=== PATIENT | female | born 2000 | race Two or more races ===

== ENCOUNTER 2023-09-19 09:21 | Emergency (ER) | payer OTHER, SELFPAY ==
--- NOTE | ~2023-09-19 | XR_ITS ---
EXAMINATION: XR CHEST CLINICAL INFORMATION: Cough. COMPARISON: None available. TECHNIQUE: Frontal view of the chest was obtained. FINDINGS: No significant abnormality is noted involving the heart, lungs, mediastinum, bony thorax or soft tissues. XR/XR chest 1V IMPRESSION: Unremarkable chest examination.
[2023-09-19 10:09] VITALS: BP 118/73; PULSE 105; RESP 18; TEMP 37.2; O2SAT 100; BMI 24.5
[2023-09-19] MEDS: Ondansetron ODT 4 MG TAB.RAPDIS TRANSLINGU (10:21)
[2023-09-19 10:31] LABS: MANUAL DIFF FLAG NO
[2023-09-19 10:33] LABS: Basophils Percent Auto 0.4 % (0-2); Eosinophils Absolute Auto 0.1 X10*3/uL (0.0-0.4); Eosinophils Percent Auto 1.1 % (0-4); Hematocrit 46.4 % (37.0-47.0); Imm Gran Abs Auto 0.01 X10*3/uL (0.00-0.03); Imm Gran Pct Auto 0.2 % (0.0-0.4); Lymphocytes Absolute Auto 1.8 X10*3/uL (1.2-4.9); Mean Corpuscular HGB Conc 32.3 g/dl (31.0-35.0); Mean Corpuscular Hemoglobin 28.4 pg (27.0-33.0); Mean Corpuscular Volume 87.9 fL (80.0-98.0); Mean Platelet Volume 10.8 fL (9.4-12.3); Monocytes Absolute Auto 0.4 X10*3/uL (0.1-1.2); Monocytes Percent Auto 6.6 % (2-11); Neutrophils Absolute Auto 3.2 x10*3/uL (2.0-8.3); Neutrophils Percent Auto 58.7 % (45-73); Platelet Count 240 X10*3/uL (160-400); Red Blood Count 5.28 X10*6/uL (4.20-5.50); Red Cell Distribution Width 12.8 % (11.0-16.0); White Blood Count 5.5 X10*3/uL (4.8-10.8)
[2023-09-19 10:34] LABS: Appearance Urine Cloudy; Color Urine Dark Yellow; Glucose Urine UA Negative (Negative); Leukocyte Esterase Urine Trace (Negative); Nitrite Urine Negative (Negative); Specific Gravity - Urine >= 1.030 (1.005-1.025); UMIC TRIGGER UACC YES; Urine Blood Negative (Negative); Urine Ketones 40 mg/dL (Negative); Urine Protein Trace mg/dL (Neg-Trace)
[2023-09-19 10:46] LABS: Bacteria Urine 4+ (None Seen); RBC Urine 0-2 /HPF (0-2); Squamous Epithelial Cell Urine >20 /HPF (0-2); WBC Urine 0-5 /HPF (0-5)
[2023-09-19 10:50] LABS: Anion Gap 15 (12-20); Blood Urea Nitrogen 6 mg/dL (9-16); Calcium 9.8 mg/dL (8.4-10.2); Carbon Dioxide 28 mmol/L (22-29); Chloride 101 mmol/L (96-108); Estimated Glomerular Filt Rate > 60; Glucose Random 99 mg/dL (60-115); Potassium 3.5 mmol/L (3.3-5.1); Sodium 140 mmol/L (135-145)
[2023-09-19 11:09] LABS: Influenza A PCR NEGATIVE (Negative); Influenza B PCR POSITIVE (Negative); Resp Syncy Virus RNA Qual PCR NEGATIVE (Negative); SARS COV2 PCR INHOUSE NEGATIVE (Negative)
[2023-09-19 11:10] LABS: HCG Quantitative < 2 mIU/mL
--- NOTE | 2023-09-19 11:42 | ED_ITS ---
HPI - General Adult General Chief complaint: General Medical Stated complaint: Vomiting Time Seen by Provider: 09/19/23 11:34 Source: patient Mode of arrival: ambulatory Limitations: no limitations History of Present Illness HPI narrative: 23 year old female with no significant past medical history presents to the ED today for evaluation of productive cough and subjective fever x2 days. No documented temperature at home. Cough is productive of yellow/green sputum. States that she was at work this morning when she became nauseous. Endorses 1 episode of vomiting prior to arrival in the ED. Reports sick contacts at work. Has not been taking any medication for this at home. denies change of . Denies chills, sweats, sore throat, shortness of breath, chest pain, wheezing, rashes, leg swelling or pain. Related Data Previous Rx's Medication Instructions Recorded cefuroxime axetil 250 mg tablet 250 mg PO BID 7 days #14 tabs 09/19/23 ondansetron 4 mg disintegrating 4 mg PO DAILY PRN nausea and 09/19/23 tablet vomiting 5 days #7 tabs oseltamivir 75 mg capsule (Tamiflu) 75 mg PO BID 5 days #10 caps 09/19/23 Allergies Allergy/AdvReac Type Severity Reaction Status Date / Time No Known Allergies Allergy Verified 09/19/23 10:20 Review of Systems 2 Review of Systems: Constitutional: +fever, No chills, fatigue, night sweats, weight changes ENT/Mouth: No ear pain, hearing loss, nasal congestion, sinus pain, rhinorrhea, sore throat Eyes: No eye pain, swelling, redness, vision changes, discharge Cardio: No chest pain, palpitations, KUNZ, orthopnea, peripheral edema Pulm: No SOB, +cough, +sputum, No wheezing, dyspnea, hemoptysis GI: +nausea, +vomiting, No hematemesis, abdominal pain, diarrhea, constipation, hematochezia, melena : No irregular bleeding, dysuria, frequency, urgency, hesitancy, hematuria, flank pain, urinary flow changes, urinary incontinence or retention MSK: No back pain, neck pain, joint pain, myalgias Skin: No lesions, rashes Neuro: No weakness, numbness, paresthesias, LOC, dizziness, headache All other systems reviewed and are negative. [facility] Past Medical History Attestation statement: The following information was validated with the patient. Source: old records reviewed and nursing notes reviewed Social History Social History Advance Directives: No Physical Exam ED Vital Signs: Vital Signs - 24 hr 09/19/23 10:09 09/19/23 11:58 Temperature 99.0 F 97.8 F Pulse Rate 105 H 98 Respiratory Rate 18 15 Blood Pressure 118/73 119/69 Pulse Oximetry 100 97 Oxygen Delivery Method Room Air Room Air BMI result Body Mass Index 24.5 Vital signs initially notable for tachycardia, now resolved. Otherwise within normal limits. Const General: cooperative, healthy appearing, comfortable, no acute distress, alert and awake Orientation/consciousness: patient oriented x3 Limitations: no limitations HENMT Head: Yes normal to inspection Ears: hearing grossly normal bilaterally, external ears normal, TM's normal bilaterally, EAC's normal, mastoids normal and no periauricular adenopathy General nose exam: Normal external nose present Eyes General: appearance normal, both eyes and all related structures Conjunctivae: conjunctivae normal Sclerae: sclerae normal Pupils: Equal, round and reactive pupils present Neck Neck: Yes normal visual inspection, Yes no lymphadenopathy and Yes no meningeal signs Resp Effort & Inspection: normal respiratory effort and able to speak in complete sentences Auscultation: clear to auscultation bilaterally Cardio Rate: regular rate Rhythm: regular rhythm Peripheral pulses: radial pulses present GI Inspection: Yes normal to inspection Palpation (GI): Soft to palpation, nontender, no guarding and no splenomegaly Auscultation: normal bowel sounds Skin General skin exam: no rashes or lesions noted Neuro General: patient oriented x3, gait normal, moves all extremities and no meningeal signs Cranial nerves: Yes Equal, round and reactive pupils present Extrem General: Yes normal to inspection and Yes full ROM Course Course Course Narrative: 1142-- CBC without leukocytosis or anemia. Chemistry without acute electrolyte abnormality requiring intervention. Beta hCG undetectable > not . Urine showing urinary tract infection. She denies dysuria, hematuria or vaginal discharge. Discussed results with patient and she agrees to antibiotic treatment for urinary tract infection. Patient tested negative for influenza a, RSV and COVID. Patient tested positive for influenza B. Informed patient of her serology results. I discussed Tamiflu and how this may decrease her symptom burden. I discussed possible adverse reactions, risks and benefits to Tamiflu. Patient is opting to take the Tamiflu. I will give her 1 dose in the ED and sent the rest to her pharmacy. I will also send Zofran to her pharmacy for nausea/vomiting. Patient has remained stable throughout ED visit today. Discussed strict return precautions. All questions answered at this time. Patient is agreeable with disposition and stable for discharge. Medications Administered Discontinued Medications Generic Name Dose Route Start Last Admin Trade Name Freq PRN Reason Stop Dose Admin Ondansetron HCl 4 mg 09/19/23 10:17 09/19/23 10:21 Ondansetron Odt 4 Mg Tab.Rapdis TRANSLINGU 09/19/23 10:18 4 mg ONCE ONE Administration Oseltamivir Phosphate 75 mg 09/19/23 11:40 09/19/23 11:48 Oseltamivir Phosphate 75 Mg Capsule PO 09/19/23 11:41 75 mg ONCE ONE Administration Medical Decision Making Medical Decision Making [facility] Narrative: 23 year old female with no significant past medical history presents to the ED today for evaluation of productive cough and subjective fever x2 days. vss. afebrile. nontoxic appearing and in nad. RRR. Lungs cta b/l. abd soft, nt/nd, normoactive bs x4, no rebound or guarding. Clinical concern for viral syndrome vs IUP vs gastroenteritis vs pneumonia vs URI. Unlikely pneumothorax, bronchitis, PE. Plan for serology, labs, and reevaluation. Differential Diagnosis Differential Diagnoses: The differential diagnosis associated with the presentation includes as above Admission/Observation not indicated Lab Data [facility] Lab Attestation statement: I reviewed the patient's lab results. as above 09/19/23 10:25 09/19/23 10:25 Labs: Lab Results 09/19/23 Range/Units 10:25 WBC 5.5 (4.8-10.8) X10*3/uL RBC 5.28 (4.20-5.50) X10*6/uL Hgb 15.0 (12.0-16.0) g/dl Hct 46.4 (37.0-47.0) % MCV 87.9 (80.0-98.0) fL MCH 28.4 (27.0-33.0) pg MCHC 32.3 (31.0-35.0) g/dl RDW 12.8 (11.0-16.0) % Plt Count 240 (160-400) X10*3/uL MPV 10.8 (9.4-12.3) fL Immature Gran % (Auto) 0.2 (0.0-0.4) % Neut % (Auto) 58.7 (45-73) % Lymph % (Auto) 33.0 (20-40) % [place] % (Auto) 6.6 (2-11) % Eos % (Auto) 1.1 (0-4) % Baso % (Auto) 0.4 (0-2) % Lymph # (Auto) 1.8 (1.2-4.9) X10*3/uL [place] # (Auto) 0.4 (0.1-1.2) X10*3/uL Eos # (Auto) 0.1 (0.0-0.4) X10*3/uL Baso # (Auto) 0.0 (0.0-0.2) X10*3/uL Abs Immat Gran (auto) 0.01 (0.00-0.03) X10*3/uL Absolute Neuts (auto) 3.2 (2.0-8.3) x10*3/uL Absolute Nucleated RBC 0.000 (0.0-0.012) X10*3/uL Nucleated RBC % (auto) 0.0 (0.0-0.2) /100WBC Sodium 140 (135-145) mmol/L Potassium 3.5 (3.3-5.1) mmol/L Chloride 101 (96-108) mmol/L Carbon Dioxide 28 (22-29) mmol/L Anion Gap 15 (12-20) BUN 6 L (9-16) mg/dL Creatinine 0.82 (0.5-1.4) mg/dL Estim Creat Clear Calc 85.0 Estimated GFR > 60 Random Glucose 99 (60-115) mg/dL Calcium 9.8 (8.4-10.2) mg/dL Beta HCG, Quant < 2 mIU/mL Urine Color Dark Yellow Urine Appearance Cloudy Urine pH 6.0 (5.0-9.0) Ur Specific [place] >= 1.030 H (1.005-1.025) Urine Protein Trace (Neg-Trace) mg/dL Urine Glucose (UA) Negative (Negative) mg/dL Urine Ketones 40 (Negative) mg/dL Urine Blood Negative (Negative) Urine Nitrite Negative (Negative) Ur Leukocyte Esterase Trace H (Negative) Urine RBC 0-2 (0-2) /HPF Urine WBC 0-5 (0-5) /HPF Ur Squamous Epith Cells >20 (0-2) /HPF Urine Bacteria 4+ (None Seen) Hyaline Casts 3-5 (0-2) /LPF Influenza Type A (PCR) NEGATIVE (Negative) Influenza Type B (PCR) POSITIVE A (Negative) RSV RNA Qual (PCR) NEGATIVE (Negative) SARS-CoV-2 RNA (RT-PCR) NEGATIVE (Negative) Independent Interpretation I performed an independent interpretation of an: Plain X-Ray Interpretation: cxr without consolidations or infiltrates, agree with radiologist's interpretation. Radiology Impression Discussion of test interpretation with radiology: I have reviewed the radiologist's reading. Radiologist Impression: XR chest 1V IMPRESSION: Unremarkable chest examination. External Record Review External record reviewed: Inpatient record Prescription Management I considered prescription management with: Antiviral and Antibiotic Critical Care Time Critical Care Time Critical Care Time: No Discharge Plan Discharge Clinical Impression: Influenza B Patient Disposition: Home, Self-Care Instructions: Oseltamivir (By mouth), Influenza (ED) Additional Instructions: You tested negative for influenza A, RSV, COVID. You tested positive for influenza B. The treatment for this is symptomatic. You have also opted to take Tamiflu for the next 5 days. We discussed risks and benefits to this. We discussed that this may decrease her symptoms by day. Will take this twice daily over the next 5 days. It has been sent to your pharmacy. Zofran as an antiemetic that has been sent to your pharmacy. You tolerated dose in the emergency department today. Take this as needed for nausea/vomiting. Take Ibuprofen or Tylenol as needed for fevers or body aches.? Practice good hand hygiene. Drink plenty of fluids. Your urine also showed infection. Ceftin as an antibiotic that has been sent to her pharmacy. Take this over the next 7 days to treat urinary tract infection. Do not skip any doses or finish these early as this may cause infection to worsen or return. Follow-up with your primary care provider this week. Return to the emergency department with new or worsening symptoms. In case of emergency call 911 Prescriptions: New oseltamivir [Tamiflu] 75 mg capsule 75 mg PO BID 5 Days Qty: 10 0RF ondansetron 4 mg tablet,disintegrating 4 mg PO DAILY PRN (Reason: nausea and vomiting) 5 Days Qty: 7 0RF cefuroxime axetil 250 mg tablet 250 mg PO BID 7 Days Qty: 14 0RF Referrals: Physician,None [Primary Care Provider] - Stand Alone Forms: Work/School Release Interventions: ED Discharge Assessment Last Done: 09/19/23 12:00 Discharge Date/Time: 09/19/23 12:01
[2023-09-19] MEDS: Oseltamivir Phosphate 75 MG CAPSULE PO (11:48)
[2023-09-19 11:58] VITALS: BP 119/69; PULSE 98; RESP 15; TEMP 36.6; O2SAT 97
== END 2023-09-19 12:01 | disposition home or self-care (01) ==
PROVIDERS: Emergency Provider Emergency Medicine Emergency Medical Services
DX: J10.1 Influenza due to other identified influenza virus with other respiratory manifestations (principal); R05.9 Cough, unspecified; Z20.822 Contact with and (suspected) exposure to COVID-19; Z20.828 Contact with and (suspected) exposure to other viral communicable diseases; Z79.899 Other long term (current) drug therapy
CPT/HCPCS: 0241U; 36415; 71045; 80048; 81001; 84702; 85025; 99283

== ENCOUNTER 2024-03-26 15:20 | Outpatient (REF) | payer OTHER, SELFPAY ==
[2024-03-27 03:59] LABS: Syphilis Screen Nonreactive (Nonreactive)
[2024-03-27 04:10] LABS: HBsAGNum1 0.28 S/CO (0.00-0.99); HIV AB/AG Nonreactive (Nonreactive); HIV Num 1 0.04 S/CO (0.00-0.99); Hepatitis B Surface Antigen Negative (Negative); ~HepC Num1 0.14 S/CO (0.00-0.79); ~Hepatitis C Antibody Nonreactive (Nonreactive)
== END 2024-03-26 15:21 | disposition home or self-care (01) ==
LOC: HO.LAB 15:20
PROVIDERS: PCP Internal Medicine; Visit Provider Obstetrics & Gynecology
DX: Z72.51 High risk heterosexual behavior (principal); Z11.3 Encounter for screening for infections with a predominantly sexual mode of transmission
CPT/HCPCS: 36415; 86780; 86803; 87340; 87389

== ENCOUNTER 2024-08-05 15:51 | Emergency (ER) | payer OTHER, SELFPAY ==
[2024-08-05] VITALS (13 sets, daily range): BP systolic 100–129; BP diastolic 56–74; PULSE 102–142; RESP 16–20; TEMP 37–39.3; O2SAT 98–100; BMI 25.0
--- NOTE | ~2024-08-05 | CT_ITS ---
EXAMINATION: CT ABDOMEN AND PELVIS WITH CONTRAST CLINICAL INFORMATION: Abdominal pain. Fever. COMPARISON: None available. TECHNIQUE: Multidetector volumetric images were obtained from the superior aspect of the liver through the pubic symphysis following administration 85 mL of Omnipaque 350 intravenous contrast. Sagittal and coronal reformatted images were obtained on the technologist's workstation. Oral Contrast: No. This CT examination was performed using dose optimization techniques as appropriate, variously including the following: *Automated exposure control. *Adjustment of mA and/or kV according to patient size (this includes techniques or standardized protocols for targeted exams where dose is matched to indication/reason for exam; i.e. extremities or head). *Use of iterative reconstruction technique. DLP: 428 mGy-cm FINDINGS: LUNG BASES: The visualized lung bases are unremarkable. LIVER, GALLBLADDER, AND BILIARY TREE: The liver is normal in size, shape, and attenuation. No focal hepatic lesion or biliary ductal dilatation is present. The gallbladder is unremarkable with no evidence of radiopaque gallstones, gallbladder wall thickening, or obvious pericholecystic inflammatory changes. PANCREAS: Unremarkable. SPLEEN: Unremarkable. ADRENAL GLANDS: Unremarkable. KIDNEYS AND URETERS: The kidneys are normal in size and shape. There is heterogeneous enhancement with focal areas of hypoenhancement within the right mid and lower poles. Mild right perinephric and periureteral stranding. No hydronephrosis or hydroureter. Findings are consistent with pyelonephritis and nephromas. Normal contour and enhancement of the left kidney. No focal parenchymal lesion. No left-sided hydronephrosis or hydroureter. No renal or ureteral stone. BLADDER: Partially distended and unremarkable. GASTROINTESTINAL TRACT: No small or large bowel obstruction. No bowel wall thickening or inflammatory change. Unremarkable appendix. PERITONEAL CAVITY: No intra-abdominal free air or free fluid. No organized fluid collection or abscess formation. No soft tissue mass. ABDOMINAL WALL: No significant hernia is appreciated. LYMPH NODES: No lymphadenopathy. VASCULAR: Unremarkable. PELVIC VISCERA: The uterus and adnexa are unremarkable. OSSEOUS STRUCTURES: Unremarkable. CT/CT abdomen pelvis w IV con IMPRESSION: 1. Findings consistent with right-sided pyelonephritis and nephromas. No hydronephrosis or hydroureter. No renal or ureteral stone. Unremarkable urinary bladder. 2. No intra-abdominal mass, lymphadenopathy, or ascites. Fleischner guidelines were followed. Electronically signed by: Amrit Mosher MD 08/05/2024 09:24 PM EDT RP
--- NOTE | ~2024-08-05 | XR_ITS ---
EXAMINATION: XR CHEST CLINICAL INFORMATION: Shortness of breath COMPARISON: Chest x-ray September 19, 2023 TECHNIQUE: Frontal portable view of the chest was obtained. 7:46 PM FINDINGS: No significant abnormality is noted involving the heart, lungs, mediastinum, bony thorax or soft tissues. XR/XR chest 1V IMPRESSION: Unremarkable examination. Electronically signed by: Jorge Heredia MD 08/05/2024 09:03 PM EDT RP
--- NOTE | 2024-08-05 16:04 | ED_ITS ---
HPI - Nausea/Vomiting/Diarrhea General Chief complaint: Nausea/Vomiting/Diarrhea Stated complaint: Nausea, fever Time Seen by Provider: 08/05/24 19:23 Source: patient, RN notes reviewed and old records reviewed Mode of arrival: ambulatory Limitations: no limitations History of Present Illness ED Provider: Alysa JORGENSEN Narrative: Past medical history presents for evaluation of nausea vomiting, body aches and fever. The patient reports her symptoms started around 5:00 p.m. last night. She has some mild abdominal discomfort. She reports a dry cough but no shortness of breath. Denies any burning with urination, urinary frequency, vaginal bleeding or discharge. Denies any history abdominal surgeries. Denies any sick contacts Associated nausea: Yes Related Data Previous Rx's ?Medication ?Instructions ?Recorded cefuroxime axetil 250 mg tablet 250 mg PO BID 7 days #14 tabs 09/19/23 ondansetron 4 mg disintegrating 4 mg PO DAILY PRN nausea and 09/19/23 tablet vomiting 5 days #7 tabs oseltamivir 75 mg capsule (Tamiflu) 75 mg PO BID 5 days #10 caps 09/19/23 cefuroxime axetil 500 mg tablet 500 mg PO Q12H #14 tabs 08/05/24 Allergies Allergy/AdvReac Type Severity Reaction Status Date / Time No Known Allergies Allergy Verified 08/05/24 16:10 Review of Systems 2 Constitutional: Constitutional: Reports body ache(s), Reports chills, Reports fever(s) and Denies headache(s) Eyes: Eyes: Denies blurry vision and Denies floaters ENT: Denies vertigo, Denies dizziness and Denies headache(s) Cardiovascular: Cardiovascular: Denies chest pain and Denies dyspnea Respiratory: Respiratory: Reports cough and Denies dyspnea Gastrointestinal: Gastrointestinal: Reports abdominal pain, Reports nausea and Reports vomiting Genitourinary: Genitourinary: Denies hematuria, Denies difficulty voiding and Denies vaginal discharge Musculoskeletal: Musculoskeletal: Denies back pain Integumentary/Breasts: Skin/Breast: Denies rash Neurologic: Denies vertigo, Denies dizziness and Denies headache(s) [facility] Social History Social History Smoked in Last 30 Days: No Use of substances other than those prescribed or required for medical reasons: No Advance Directives: No Advance Directives Information Provided: No Do you have a plan to hurt others: No Plan Patient : No Physical Exam 2 Vital Signs: Vital Signs: Last Vital Signs Temp 98.8 F 08/05/24 21:00 Pulse 109 H 08/05/24 21:18 Resp 20 08/05/24 21:18 BP 105/58 L 08/05/24 21:18 Pulse Ox 99 08/05/24 21:18 O2 Del Method Room Air 08/05/24 21:18 BMI result Body Mass Index 25.0 Const: General: healthy appearing, comfortable, no acute distress, alert and awake Nutritional Appearance: well nourished Orientation/consciousness: p atient oriented x3 HEENT: Head: Yes normocephalic and Yes atraumatic Eyes: Eyelids: Yes eyelids normal Conjunctivae: conjunctivae normal S clerae: sclerae normal Corneas: corneas normal Pupils: Equal, round and reactive pupils present EOM: EOMs intact bilaterally Neck: Neck: Yes full ROM Resp: Effort & Inspection: normal respiratory effort, able to speak in complete sentences, no audible wheezes and not labored Auscultation: clear to auscultation bilaterally GI: Inspection: No distended Palpation (GI): Soft to palpation, not firm, nontender, no guarding and not rigid Skin: General skin exam: elasticity normal Neuro: General: patient oriented x3 Cranial nerves: Yes Equal, round and reactive pupils present and Yes Bilaterally intact EOM present Cognition (Neuro): normal cognition Course Course Course Narrative: This is a Rapid Medical Exam performed in triage by Karina Palacios PA-C. Full HPI, ROS and PE to be performed by primary ED provider. 24-year-old female presenting to the ED c/o nausea since last night w/vomiting & myalgias & fever (Tmax 102) last Tylenol around 3AM. denies abd pain PE: tachycardic, febrile 100.3. Abdomen soft/nontender Plan: EKG, labs, viral testing, UA Reevaluation(s) Reevaluation #1: A sepsis alert was called, sepsis focused exam performed Time: 17:30 Medications Administered Discontinued Medications Generic Name Dose Route Start Last Admin Trade Name Freq PRN Reason Stop Dose Admin Acetaminophen 975 mg 08/05/24 16:08 08/05/24 18:47 Acetaminophen 325 Mg Tablet PO 08/05/24 16:09 975 mg ONCE ONE Administration Ceftriaxone Sodium 1 gm 08/05/24 19:50 08/05/24 19:58 Ceftriaxone Sodium 1 Gm Vial IVPUSH 08/05/24 19:51 1 gm ONCE ONE Administration Sodium Chloride 1,743 mls @ 1,743 mls/hr 08/05/24 19:29 08/05/24 21:44 Ns 30 ml/kg infuse over 1 hr (1743 ml) 08/05/24 20:28 Infused IV Infusion .Q1H STA Iohexol 85 ml 08/05/24 20:13 08/05/24 20:14 Iohexol 350 Mg/Ml 100 Ml Infus..Btl IV 08/05/24 20:14 85 ml ONCE ONE Administration Medical Decision Making Medical Decision Making [facility] Narrative: 24-year-old female presents for evaluation of fevers, abdominal pain, nausea and vomiting. Her physical exam is quite reassuring, she is nontender, her lungs are clear to auscultation, is febrile as high as 102.7 and tachycardic to 140 which is a sinus rhythm. Urinalysis does have pyuria which could be a source of UTI/sepsis. Given her leukocytosis with abnormal vital signs will call his sepsis alert, will treat with ceftriaxone Differential Diagnosis Differential Diagnoses: The differential diagnosis associated with the presentation includes UTI Sepsis PID Pneumonia Influenza COVID-19 Admission/Observation Consideration of admission/observation: Escalation of care including admission/observation considered Consider admission for the patient due to pyelonephritis with sepsis. Over the patient appears well, her vital signs are improving after treatment. She has not been vomiting and she would prefer to be. Return precautions were given Lab Data [facility] Lab Attestation statement: I reviewed the patient's lab results. Leukocytosis to 14.7. There was an associated left shift. The patient is not anemic is low at 134, CO2 is low at 20, otherwise electrolytes are within normal limits, the patient is not . Urinalysis shows a small amount of blood with 21-50 white cells and 1+ bacteria. There is also associated leukocyte esterase and protein urea 08/05/24 16:47 08/05/24 16:47 Labs: Lab Results 08/05/24 08/05/24 Range/Units 16:47 19:01 WBC 14.7 H (4.8-10.8) X10*3/uL RBC 4.81 (4.20-5.50) X10*6/uL Hgb 14.1 (12.0-16.0) g/dl Hct 42.8 (37.0-47.0) % MCV 89.0 (80.0-98.0) fL MCH 29.3 (27.0-33.0) pg MCHC 32.9 (31.0-35.0) g/dl RDW 12.7 (11.0-16.0) % Plt Count 235 (160-400) X10*3/uL MPV 10.6 (9.4-12.3) fL Immature Gran % (Auto) 0.4 (0.0-0.4) % Neut % (Auto) 84.9 H (45-73) % Lymph % (Auto) 8.5 L (20-40) % [place] % (Auto) 5.9 (2-11) % Eos % (Auto) 0.0 (0-4) % Baso % (Auto) 0.3 (0-2) % Lymph # (Auto) 1.3 (1.2-4.9) X10*3/uL [place] # (Auto) 0.9 (0.1-1.2) X10*3/uL Eos # (Auto) 0.0 (0.0-0.4) X10*3/uL Baso # (Auto) 0.1 (0.0-0.2) X10*3/uL Abs Immat Gran (auto) 0.06 H (0.00-0.03) X10*3/uL Absolute Neuts (auto) 12.4 H (2.0-8.3) x10*3/uL Absolute Nucleated RBC 0.000 (0.0-0.012) X10*3/uL Nucleated RBC % (auto) 0.0 (0.0-0.2) /100WBC Sodium 134 L (135-145) mmol/L Potassium 3.9 (3.3-5.1) mmol/L Chloride 102 (96-108) mmol/L Carbon Dioxide 20 L (22-29) mmol/L Anion Gap 16 (12-20) BUN 7 L (9-16) mg/dL Creatinine 0.80 (0.5-1.4) mg/dL Estim Creat Clear Calc 87.2 Estimated GFR > 60 Random Glucose 118 H (60-115) mg/dL Lactic Acid 1.3 (0.5-2.0) mmol/L Calcium 9.8 (8.4-10.2) mg/dL Magnesium 1.8 (1.6-2.6) mg/dL Total Bilirubin 0.9 (0.0-1.0) mg/dL Direct Bilirubin 0.4 (0.0-0.5) mg/dL AST 19 (5-31) U/L ALT 9 (0-31) U/L Alkaline Phosphatase 83 (39-117) U/L Total Protein 8.0 (6.5-8.0) g/dL Albumin 4.4 (3.5-5.0) g/dL Lipase 16 (8-78) U/L Urine Color Yellow Urine Appearance Cloudy Urine pH 5.5 (5.0-9.0) Ur Specific [place] 1.025 (1.005-1.025) Urine Protein 30 (1+) H (Neg-Trace) mg/dL Urine Glucose (UA) Negative (Negative) mg/dL Urine Ketones >=160 (Negative) mg/dL Urine Blood Small (1+) H (Negative) Urine Nitrite Negative (Negative) Ur Leukocyte Esterase Small (1+) H (Negative) Urine RBC 3-5 H (0-2) /HPF Urine WBC 21-50 H (0-5) /HPF Ur Squamous Epith Cells 11-20 (0-2) /HPF Urine Bacteria 1+ (None Seen) Hyaline Casts 3-5 (0-2) /LPF Urine Test NEGATIVE (NEGATIVE) Influenza Type A (PCR) NEGATIVE (Negative) Influenza Type B (PCR) NEGATIVE (Negative) RSV RNA Qual (PCR) NEGATIVE (Negative) SARS-CoV-2 RNA (RT-PCR) NEGATIVE (Negative) Radiology Impression Discussion of test interpretation with radiology: I have reviewed the radiologist's reading. Radiologist Impression: CT/CT abdomen pelvis w IV con IMPRESSION: 1. Findings consistent with right-sided pyelonephritis and nephromas. No hydronephrosis or hydroureter. No renal or ureteral stone. Unremarkable urinary bladder. 2. No intra-abdominal mass, lymphadenopathy, or ascites. Fleischner guidelines were followed. Electronically signed by: Amrit Mosher MD 08/05/2024 09:24 PM EDT RP Discharge Plan Discharge Clinical Impression: Fever, Pyelonephritis Patient Disposition: Home, Self-Care Instructions: Kidney Infection (ED) Additional Instructions: You have a urine infection that has gone into your kidney. Take the antibiotic twice daily for the next week Use ibuprofen/Tylenol for fevers and body aches I recommend alternating every 4 hours Return for new or worsening symptoms, especially if you are unable to tolerate the antibiotics Prescriptions: New cefuroxime axetil 500 mg tablet 500 mg PO Q12H Qty: 14 0RF No Action oseltamivir [Tamiflu] 75 mg capsule 75 mg PO BID 5 Days Qty: 10 0RF ondansetron 4 mg tablet,disintegrating 4 mg PO DAILY PRN (Reason: nausea and vomiting) 5 Days Qty: 7 0RF cefuroxime axetil 250 mg tablet 250 mg PO BID 7 Days Qty: 14 0RF Print Language: Georgian
--- NOTE | 2024-08-05 16:06 | ECG_ITS ---
Test Reason : nausea Blood Pressure : / mmHG Vent. Rate : 139 BPM Atrial Rate : 139 BPM P-R Int : 132 ms QRS Dur : 074 ms QT Int : 270 ms P-R-T Axes : 074 -28 077 degrees QTc Int : 410 ms Sinus tachycardia Biatrial enlargement Abnormal ECG No previous ECGs available Referred By: Karina Palacios Electronically Signed By:JOHNSON DERAS
[2024-08-05 16:55] LABS: MANUAL DIFF FLAG NO
[2024-08-05 16:57] LABS: Basophils Absolute Auto 0.1 X10*3/uL (0.0-0.2); Basophils Percent Auto 0.3 % (0-2); Hematocrit 42.8 % (37.0-47.0); Hemoglobin 14.1 g/dl (12.0-16.0); Imm Gran Abs Auto 0.06 X10*3/uL (0.00-0.03); Imm Gran Pct Auto 0.4 % (0.0-0.4); Lymphocytes Absolute Auto 1.3 X10*3/uL (1.2-4.9); Lymphocytes Percent Auto 8.5 % (20-40); Mean Corpuscular HGB Conc 32.9 g/dl (31.0-35.0); Mean Corpuscular Hemoglobin 29.3 pg (27.0-33.0); Mean Platelet Volume 10.6 fL (9.4-12.3); Monocytes Absolute Auto 0.9 X10*3/uL (0.1-1.2); Monocytes Percent Auto 5.9 % (2-11); Neutrophils Absolute Auto 12.4 x10*3/uL (2.0-8.3); Neutrophils Percent Auto 84.9 % (45-73); Platelet Count 235 X10*3/uL (160-400); Red Blood Count 4.81 X10*6/uL (4.20-5.50); Red Cell Distribution Width 12.7 % (11.0-16.0); White Blood Count 14.7 X10*3/uL (4.8-10.8)
[2024-08-05 17:05] LABS: Lactic Acid 1.3 mmol/L (0.5-2.0)
[2024-08-05 17:14] LABS: Alanine Aminotransferase 9 U/L (0-31); Albumin Level 4.4 g/dL (3.5-5.0); Alkaline Phosphatase 83 U/L (39-117); Anion Gap 16 (12-20); Aspartate Amino Transferase 19 U/L (5-31); Bilirubin Direct 0.4 mg/dL (0.0-0.5); Bilirubin Total 0.9 mg/dL (0.0-1.0); Blood Urea Nitrogen 7 mg/dL (9-16); Calcium 9.8 mg/dL (8.4-10.2); Carbon Dioxide 20 mmol/L (22-29); Chloride 102 mmol/L (96-108); Creatinine Clr Calc Pharmacy 87.2; Estimated Glomerular Filt Rate > 60; Glucose Random 118 mg/dL (60-115); Lipase 16 U/L (8-78); Magnesium 1.8 mg/dL (1.6-2.6); Potassium 3.9 mmol/L (3.3-5.1); Sodium 134 mmol/L (135-145)
[2024-08-05 17:39] LABS: Influenza A PCR NEGATIVE (Negative); Influenza B PCR NEGATIVE (Negative); Resp Syncy Virus RNA Qual PCR NEGATIVE (Negative); SARS COV2 PCR INHOUSE NEGATIVE (Negative)
[2024-08-05] MEDS: Acetaminophen 325 MG TABLET 975 MG PO (18:47)
[2024-08-05 19:11] LABS: UPreg QC Valid YES; Urine Pregnancy NEGATIVE (NEGATIVE)
--- NOTE | 2024-08-05 19:15 | MHC.EDTECH ---
This tech assumed care of patient at 1900,rounded and introduced self to pt,vitals taken, temp is 102.7,HR,124,RN made aware,patient appears to be resting comfortably,visitor at bedside,call milner in reach
[2024-08-05 19:22] LABS: Appearance Urine Cloudy; Color Urine Yellow; Glucose Urine UA Negative (Negative); Leukocyte Esterase Urine Small (1+) (Negative); Nitrite Urine Negative (Negative); PH 5.5 (5.0-9.0); Specific Gravity - Urine 1.025 (1.005-1.025); UMIC TRIGGER UACC YES; Urine Blood Small (1+) (Negative); Urine Ketones >=160 mg/dL (Negative); Urine Protein 30 (1+) mg/dL (Neg-Trace)
--- NOTE | 2024-08-05 19:24 | PC.NURSE ---
assumed care of pt at this time. Luis BARAJAS made aware of vitals.
[2024-08-05 19:46] LABS: Bacteria Urine 1+ (None Seen); UACC Culture Trigger YES; WBC Urine 21-50 /HPF (0-5)
[2024-08-05] MEDS: cefTRIAXone sodium 1 GM VIAL IVPUSH (19:58)
[2024-08-05] MEDS: SODIUM CHLORIDE 1743 ML IV (19:58)
[2024-08-05] MEDS: iohexoL 350 MG/ML 100 ML INFUS..BTL 85 ML IV (20:14)
--- NOTE | 2024-08-05 21:02 | MHC.EDTECH ---
Rounded and vitals taken,patient's tempt in down 98.8, resp.panel swab collected and sent to lab,call milner in reach
[2024-08-05 21:55] LABS: Procalcitonin 0.16 ng/mL
[2024-08-06 12:00] LABS: Adenovirus PCR Not Detected (Not Detect.); Bordetella parapertussis PCR Not Detected (Not Detect.); Bordetella pertussis PCR Not Detected (Not Detect.); Chlamydia pneumoniae PCR Not Detected (Not Detect.); Coronavirus 229E PCR Not Detected (Not Detect.); Coronavirus HKU1 PCR Not Detected (Not Detect.); Coronavirus NL63 PCR Not Detected (Not Detect.); Coronavirus OC43 PCR Not Detected (Not Detect.); Human metapneumovirus PCR Not Detected (Not Detect.); Influenza A PCR Not Detected (Not Detect.); Influenza B PCR Not Detected (Not Detect.); Mycoplasma pneumoniae PCR Not Detected (Not Detect.); Parainfluenza 1 PCR Not Detected (Not Detect.); Parainfluenza 2 PCR Not Detected (Not Detect.); Parainfluenza 3 PCR Not Detected (Not Detect.); Parainfluenza 4 PCR Not Detected (Not Detect.); RSV PCR Not Detected (Not Detect.); Rhino/Enterovirus PCR Not Detected (Not Detect.)
[2024-08-06 12:11] LABS: SARS-CoV-2 PCR Not Detected (Not Detect.)
== END 2024-08-05 22:48 | disposition home or self-care (01) ==
PROVIDERS: Physician Assistant; Student in an Organized Health Care Education/Training Program; Emergency Provider Internal Medicine
DX: R50.9 Fever, unspecified (principal); N12 Tubulo-interstitial nephritis, not specified as acute or chronic; R00.0 Tachycardia, unspecified; Z03.818 Encounter for observation for suspected exposure to other biological agents ruled out
CPT/HCPCS: 0241U; 36415; 71045; 74177; 80048; 80076; 81001; 81025; 83605; 83690; 83735; 84145; 85025; 87040; 87086; 87088; 87186; 87633; 93005; 96361; 96374; 99285; J0696; Q9967

== ENCOUNTER → 2024-08-05 16:06 | Outpatient (BNV) | payer OTHER, SELFPAY | PROVIDERS: Emergency Provider Internal Medicine; Visit Provider Internal Medicine | DX: R94.31 Abnormal electrocardiogram [ECG] [EKG] (principal) | CPT/HCPCS: 93010 ==

== ENCOUNTER 2025-04-30 11:11 | Outpatient (AMB) | payer OTHER, SELFPAY ==
--- NOTE | 2025-04-30 11:12 | A.OFFPC_ITS ---
Vital Signs 04/30/25 11:18 Height 5 ft Weight 130 lb BMI 25.4 BP 98/67 Blood Pressure Location Lt brachial Position Sitting Respiration 12 Pulse 62 Pulse Source Pulse Oximeter Temp 97.1 F Temp Source Oral Pulse Oximetry (%) 100 Oxygen Delivery Method Room Air Intake Visit Reasons: New Appt New Patient requesitng an PE Intake Note: New patient to establish care and cpe Residential Concierge Required: No Allergies No Known Allergies Allergy (Verified 04/30/25 11:27) Medication List - Last Reconciled 04/30/25 [facility] No Known Home Meds Tobacco use date assessed: 04/30/25 Dental Screening Dental Screen Date: 04/30/25 Did you have a dental visit in the last 12 months?: Yes Did you have a dental problem in the last 6 months where you did not have access to dental care?: No Was dental information given to patient?: Patient has dentist HPI HPI Comments History of Present Illness Details 25 y/o F with hx of pyelonephritis, nep hromas* Social: 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 She has not ff'd up on this - Unspecified heart condition at age 14, cleared after two appointments in [place] - No allergies, surgery history, or curr ent medications. - Family history notes cardiac issues in the grandfather. - Concerned with hair loss one year ago; possible hormonal/ nutritional cause. 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 Family History - Grandfather with heart problems. Social History - Lives at home, feels safe, and has sta ble family relations. - Attempting to conceive for over a year , seeing DIRECTOR FRAUD for related concerns. - No smoking, drinking, or drug use ment ioned. - Wears a seatbelt consistently while dr castrejon. Health Maintenance - Tetanus vaccination status uncertain, possibly administered three years ago. - Undergoing routine Pap smears, last co mpleted the previous year with DIRECTOR FRAUD. - Varicella and Hepatitis vaccinations u p-to-date. - Expressed interest in screening labs f or diabetes, heart disease, thyroid function, and anemia due to familial cardiac history. Review of Systems - Cardiovascular: Reports no current ash[address] pain. - Genitourinary: Previous right-sided py elonephritis, recent ER visit for kidney infection. - Dermatological: Notable hair loss appr oximately one year ago. - Musculoskeletal: Experienced work-rela tato pain initially assumed muscular. - General: Fever leading to hospitalizat ion for kidney infection. Physical Exam General: Well developed, well nourished, in no acute distress. Appears stated age. Head: Normocephalic, atraumatic. Eyes: Pupils are equal, round and reactive to light and accommodation. Conjunctivae are clear. Vision grossly normal. Ears: TMs clear AU, EACS WNL Nose: Patent, without discharge. Neck: Supple, no adenopathy or thyromegaly. Breast: Patient performs self-breast exams, no concerns reported. Lungs: Clear to auscultation bilaterally. No rales, rhonchi or wheeze noted. Good air flow in all wolf. Heart: Regular rate and rhythm. No murmurs, click, rubs or gallops are noted. Abdomen: Bowel sounds present in all quadrants. The abdomen is soft, nontender, with no masses or organomegaly noted. No hernias are noted. : Deferred. Reviewed recommendations for routine MEDICAL RECORDS COORDINATOR. Extremities: No clubbing, cyanosis nor edema is noted. Neurologic: Gait and station normal. Cranial Nerves 2-12 intact. Motor strength grossly symmetrical and intact. No sensory loss. Balance normal. Skin: No rashes, ulcers, or lesions noted. Turgor is good. Skin color is good. Hair and nails are without abnormalities. Psych: Normal eye contact, affect and mood appropriate, and normal interactions. Patient is alert and appropriate to context. Results Pending Discussion Notes I discussed the patient's clinical history involving pyelonephritis and previously noted nephromas on the right kidney. We reviewed her familial cardiac history and concerns about hair loss and prior heart condition. Plans include updating kidney imaging via ultrasound and conducting lab screenings for diabetes, cardiac risk factors, thyroid function, and anemia. I emphasized the importance of these screenings given her family history of cardiac problems. We also discussed following up with the patient through her registered patient portal, facilitating communication regarding lab results, and potential further management. Consent for placing orders for a kidney ultrasound and lab screenings was obtained after discussing anticipated benefits, risks, and the necessity of ensuring kidney health and assessing other systemic conditions. I will arrange the ultrasound appointment and share results via the patient portal to discuss further management. Assessment and Plan 1. History of pyelonephritis - Kidney ultrasound planned. - Monitor kidney health. 2. Possible nephromas - Obtain updated imaging to assess. 3. Possible heart condition - Monitor symptoms. - Conduct cardiovascular screenings. 4. Hx of kidney infection - Confirm resolution post-treatment. - Assess kidney health via imaging. 5. Hair loss - now resolved - Evaluate thyroid and nutritional cause s. 6. Family cardiac history - Cardiovascular screenings. - Emphasize lifestyle and monitoring. RTO 1 YEAR CPE, SOONER PRN MY OFFICE WILL ARRANGE FU ON RENAL US ONCE RESULTS ARE AVAILABLE Patient Instructions - Schedule a kidney ultrasound at the [facility]. Await a phone call for an appointment. - Complete lab tests to screen for diabe marva, heart disease risk, and thyroid function. - Review lab results via the patient por titus; expect contact if further discussion is needed. - Continue routine health screenings, in cluding Pap smears as advised by DIRECTOR FRAUD. - Wear a seatbelt consistently and drive safely. - Discuss any new symptoms or health karine nges at follow-up visits. Consent Patient was informed and verbally consented to the use of an ambient scribe for clinic note documentation during this visit. An additional 15 minutes was spent addressing the problem(s) noted at todays visit. This includes time spent before the visit reviewing the chart, time spent during the visit, and time spent after the visit on documentation reviewing laboratory results, diagnostic imaging, medications, performing a medically necessary evaluation, counseling on diagnoses, care coordination, ordering appropriate tests, ordering appropriate medications, review of tests performed by other providers, reporting test results with the patient, communication with other healthcare providers. [facility] Medical History (Updated 04/30/25 @ 11:39 by Bella Lui [facility]) No pertinent past medical history Surgical History (Updated 04/30/25 @ 11:23 by Diego Hopkins MA) No pertinent past surgical history Family History (Updated 04/30/25 @ 11:25 by Diego Hopkins MA) Maternal Grandmother HTN (hypertension) High cholesterol Diabetes Thyroid disorder Maternal Grandfather High cholesterol Diabetes Cardiovascular disease Father Diabetes Paternal Grandmother Thyroid disorder Social History (Updated 04/30/25 @ 11:22 by Diego Hopkins MA) Household Members: Spouse Housing: Apartment Are you a primary palliative care specialist to a significant other at home: No Do you presently have visiting nurse or other home services: No Alcohol intake: current Alcohol intake frequency: a few times a month Patient Tobacco Use Status: Never used Tobacco e-Cigarette/Vaping Use: Never Used Second Hand Smoke Exposure: No service: No Current occupational status: employed Current occupation: [employer] Cognitive needs: No Hearing needs: No Vision needs: No Questionnaire PHQ-9 Over the last 2 weeks, how often have you been bothered by any of the following problems? 1. Little interest or pleasure in doing things: not at all 2. Feeling down, depressed, or hopeless: not at all 3. Trouble falling or staying asleep, or sleeping too much: not at all 4. Feeling tired or having little energy: not at all 5. Poor appetite or overeating: not at all 6. Feeling bad about yourself - or that you are a failure or have let yourself or your family down: not at all 7. Trouble concentrating on things, such as reading the newspaper or watching television: not at all 8. Moving or speaking so slowly that other people could have noticed. Or the opposite - being so fidgety or restless that you have been moving around a lot more than usual: not at all 9. Thoughts that you would be better off or of hurting yourself in some way: not at all Total score: 0 Depression Screening Interpretation: Negative Depression Screening Done: Yes 08000 - PHQ-9 Billing: Yes Source: Developed by Drs. Aureliano Sneed, Mariaa Don, Fercho Pagan and colleagues, with an educational lottie from [employer]. Thrive Questionnaire Date Thrive assessed: 04/30/25 I am a: Patient What is your living situation today?: I have a steady place to live Within the past 12 months, did the food you bought not last and you didn't have the money to get more?: I choose not to answer this question Within the past 12 months, did you worry whether your food would run out before you got money to buy more?: I choose not to answer this question Do you have trouble paying for medicines?: No Do you have trouble getting transportation to medical appointments?: No Do you have trouble paying your heating and electricity bill?: No Do you have trouble taking care of your child, family member or friend?: No Do you have trouble with day-to-day activities such as bathing, preparing meals, shopping, managing finances, etc.?: No Are you currently unemployed and looking for a job?: No Are you interested in more education?: Yes Please select the resources that you would like help with: Education Currently or been in a relationship where the following occur: No concerns reported THRIVE Score: 0 AUDIT C Alcohol Use Questionnaire (AUDIT-C) 1. How often do you have a drink containing alcohol?: Monthly or less 2. How many drinks containing alcohol do you have on a typical day when you are drinking?: 1 or 2 3. How often do you have six or more drinks on one occasion?: Never Total Score: 1 Score Reviewed/Action Taken: Yes CARITO-7 AMB Questionnaire CARITO-7 Date CARITO - 7 assessed: 04/30/25 Feeling nervous, anxious, or on edge: 0 = Not at all Not being able to stop or control worryin = Not at all Worrying too much about different things: 1 = Several days Trouble relaxin = Not at all Being so restless that it is hard to sit still: 0 = Not at all Becoming easily annoyed or irritable: 0 = Not at all Feeling afraid as if something awful might happen: 0 = Not at all Total CARITO-7 score (0-4 normal; 5-9 mild; 10-14 moderate; 15-21 severe): 1 Source: Developed by Drs. Aureliano Sneed, Mariaa Don, Fercho Pagan and colleagues, with an educational lottie from [employer]. CARITO-7 Assessment Billing CARITO-7 Assessment Tool: CARITO-7 Assessment 35443 Physical exam (Primary Care) Vital Signs: Last Vital Signs Temp 97.1 F 04/30/25 11:18 Pulse 62 04/30/25 11:18 Resp 12 04/30/25 11:18 BP 98/67 04/30/25 11:18 Pulse Ox 100 07/23/25 11:18 Oxygen Delivery Method Room Air 04/30/25 11:18 BMI result Body Mass Index 25.4 Tobacco/Smoking Status: Tobacco use Status Tobacco use date assessed 04/30/25 04/30/25 11:17 Patient Tobacco Use Status Never used Tobacco 04/30/25 11:22 e-Cigarette/Vaping Use Never Used 04/30/25 11:22 PHQ-9: PHQ-9 Score PHQ-9: Total score 0 04/30/25 11:26 Depression Screening Interpretation: Negative Thrive Assessment: Date of Thrive Assessment Date Thrive assessed 04/30/25 04/30/25 11:17 Currently or been in a relationship where the following occur: No concerns reported Coding Level of Care Code New Pt Level 2 (72512) New Pt Prev Care 18-39yr(59125 Diagnoses Encounter to establish care Z76.89 Hx of pyelonephritis Z87.448 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 Laterality: right Encounter for general adult medical examination without abnormal findings Z00.00 Additional Codes CARITO-7 Assessment Billing - CARITO-7 Assessment Tool: CARITO-7 Assessment 16024 ([id number]) PHQ-9 - 13415 - PHQ-9 Billing: Yes ([id number]) Assessment & Plan Assessment & Plan (1) Encounter to establish care: Code(s): Z76.89 - Persons encountering health services in other specified circumstances (2) Hx of pyelonephritis: Onset Date: ~07/2024 Code(s): Z87.448 - Personal history of other diseases of urinary system Category: Medical (3) Nephroma: Onset Date: 07/2024 Comment: noted on CT 07/2024 will check renal US to eval and send to renal PRN Code(s): C64.9 - Malignant neoplasm of unspecified kidney, except renal pelvis Category: Medical Qualifiers: Laterality: right Qualified Code(s): C64.1 - Malignant neoplasm of rig ht kidney, except renal pelvis (4) Encounter for general adult medical examination without abnormal findings: Onset Date: ~04/30/25 Code(s): Z00.00 - Encounter for general adult medical examination without abnormal findings Category: Medical Plan . Orders: Orders US renal BI Today C64.9 - Malignant neoplasm of unspecified kidney, except renal pelvis, Z87.448 - Personal history of other diseases of urinary system Complete Blood Count no Diff Today C64.9 - Malignant neoplasm of unspecified kidney, except renal pelvis, Z00.00 - Encounter for general adult medical examination without abnormal findings, Z87.448 - Personal history of other diseases of urinary system Lipid Panel Today C64.9 - Malignant neoplasm of unspecified kidney, except renal pelvis, Z00.00 - Encounter for general adult medical examination without abnormal findings, Z87.448 - Personal history of other diseases of urinary system TSH reflex Free T4 Today C64.9 - Malignant neoplasm of unspecified kidney, except renal pelvis, Z00.00 - Encounter for general adult medical examination without abnormal findings, Z87.448 - Personal history of other diseases of urinary system Vitamin B12 and Folate Today C64.9 - Malignant neoplasm of unspecified kidney, except renal pelvis, Z00.00 - Encounter for general adult medical examination without abnormal findings, Z87.448 - Personal history of other diseases of urinary system Vitamin D 25-OH Total Today C64.9 - Malignant neoplasm of unspecified kidney, except renal pelvis, Z00.00 - Encounter for general adult medical examination without abnormal findings, Z87.448 - Personal history of other diseases of urinary system Comprehensive Met. Panel Today C64.9 - Malignant neoplasm of unspecified kidney, except renal pelvis, Z00.00 - Encounter for general adult medical examination without abnormal findings, Z87.448 - Personal history of other diseases of urinary system Hemoglobin A1c Today C64.9 - Malignant neoplasm of unspecified kidney, except renal pelvis, Z00.00 - Encounter for general adult medical examination without abnormal findings, Z87.448 - Personal history of other diseases of urinary system IRON PROFILE Today C64.9 - Malignant neoplasm of unspecified kidney, except renal pelvis, Z00.00 - Encounter for general adult medical examination without abnormal findings, Z87.448 - Personal history of other diseases of urinary system Microalbumin, Random (w Creat) Today C64.9 - Malignant neoplasm of unspecified kidney, except renal pelvis, Z00.00 - Encounter for general adult medical examination without abnormal findings, Z87.448 - Personal history of other diseases of urinary system UA CC w/rflx Micro + Cult Today C64.9 - Malignant neoplasm of unspecified kidney, except renal pelvis, R30.0 - Dysuria, Z00.00 - Encounter for general adult medical examination without abnormal findings, Z87.448 - Personal history of other diseases of urinary system Medications: Discontinued ondansetron Discontinued Reason: Patient Completed Course 4 mg PO DAILY 5 days PRN 7 tabs 0RF nausea and vomiting cefuroxime axetil Discontinued Reason: Patient Completed Course 250 mg PO BID 7 days 14 tabs 0RF cefuroxime axetil Discontinued Reason: Patient Completed Course 500 mg PO Q12H 14 tabs 0RF oseltamivir (Tamiflu) Discontinued Reason: Patient Completed Course 75 mg PO BID 5 days 10 caps 0RF Patient Instructions: Walk-In Care (Urgent Care): We Make it Easy Walk-in for urgent medical issues such as: ? Seasonal Allergies ? Insect Bites ? Cough ? Diarrhea ? Acute Asthma Attacks ? Back, Knee or Joint Pain ? Ear Infection ? Fever without a Rash ? Headaches ? Nausea ? [place], Rash or Skin Irritation ? Sore Throat ? Sports Physicals ? Vomiting Most insurances are accepted. Patients do not need to be part of the [facility] to seek care at the walk-in clinic. Locations [address] [place] [address] [place] [address] ? [phone] [facility] Walk-In Care in [place] provides services to ages 18 and over. Open Monday-Monday: 8 a.m. to 5 p.m. and Monday: 9 a.m. to 3 p.m.* *Hours may vary due to staffing availability. To confirm Walk-In Care hours in [place], please call [phone]. [address] [place] [id number] ? [phone] [facility] Walk-In Care in [place] provides services to ages 12 and over. Open Monday-Monday: 8 a.m. to 5 p.m. Hours may vary due to staffing availability. To confirm Walk-In Care hours in [place], please call [phone]. LABORATORY SERVICES: [facility] Lab ? Primary Location [address] [place] [address] Monday through Monday 6:00 AM ? 5:00 PM Monday 7:00 AM ? 11:00 AM* [phone] The [facility] Lab is centrally located near the front entrance of the [facility] for easy outpatient access. Convenient parking is provided for outpatients. *Hours may vary due to staffing availability. To confirm Laboratory hours for any location, please call [phone]. Offsite Location For your convenience, we offer offsite laboratory draw stations at the following locations: [address], [place] ? [address], [address], [place] Monday through Monday 7:30 AM ? 1:00 PM* [phone] *Hours may vary due to staffing availability. To confirm Laboratory hours for any location, please call [phone]. [place] ? [facility] [address] [facility] Monday through Monday 6:00 AM ? 3:30 PM* Monday 6:30 AM ? 3 PM* [phone] *Hours may vary due to staffing availability. To confirm Laboratory hours for any location, please call [phone] [place] [address] Monday through Monday 7:30 AM ? 4:00 PM* [phone] *Hours may vary due to staffing availability. To confirm Laboratory hours for any location, please call [phone] [place] [address] Monday through 9:00 AM ? 4:00 PM* *Hours may vary due to staffing availability. To confirm Laboratory hours for any location, please call [phone]. Appointments are not necessary. Walk-ins are welcome. Like all the departments throughout the [facility], our Lab undergoes frequent reviews to ensure the quality and accuracy of test results, and our staff takes special pride in its status as a nationally accredited facility. Patient Portal: ONE PATIENT. ONE RECORD. BETTER CARE. [facility] has a fully integrated, cutting- edge mobile electronic health information system that has revolutionized the way we care for our patients and manage our organization. This system improves communication and coordination enabling us to provide safe, higher-quality care, and an overall positive experience for staff and patients. Our first priority, as always, is to deliver the highest quality care possible. The system is running in the background supporting that priority. This portal is for all [facility] services and practices. If you are experiencing any technical difficulties with enrolling or logging into the Patient Portal please complete the [facility] Patient Portal Technical Support Form. [facility] now offers a new secure on-line interactive tool for patients to review their health information ? ?Patient Portal. This interactive web portal will enable patients and their families to take an active role in their care by providing easy, secure access to their health information via the internet. The Patient Portal provides patients with instant access to their health information, including laboratory results, medications, allergies, demographic information, visit history, and more. In addition to managing their own care, parents and health care proxies with authorized consent will appreciate the ability to access the records of those individuals for whom they provide care. Please note: if you wish to gain access (Proxy) to another patient?s portal, you will be required to come to the Medical Records Department in person at [facility]. Both the patient giving proxy access and the proxy will need to provide photo identification and complete the appropriate authorization. The Patient Portal also allows track their appointments online. The [facility] Patient Portal also saves patients time by allowing them to submit updates to their demographic and contact information prior to their visits. Portal email notifications will also alert patients to any new activity on their portal, such as test results and new appointments. In order to initially enroll in the [facility] Patient Portal, you will need to enter some required information including the following: * your [facility] Medical Record number * your personal home email address * name * date of Please note: In order to enroll in the [facility] Patient Portal, we need to have your email address on file in your electronic medical record. ?The email address needs to be specific for one person (yourself) in order for your Portal enrollment to be successful. ?You can update your email address in person with our Registration staff when you are registering for a hospital visit. ?Otherwise, you will need to come to the Health Information Management (Medical Records) Department at [facility]. ?We are open from Monday ? Monday from 7:30 a.m. ? 4:30 p.m. ?You will be required to present a photo id. Once you have successfully enrolled in the Patient Portal, you will receive a one-time user id and password for the Portal, sent to your email address. ?This will allow you to log into the Patient Portal within 99 hrs and reset your own logon id and password, and define personal security questions. ?Once your permanent login and password have been set, you can log into the [facility] Patient Portal at any time via the blue button above or from the Portal Logon button on any page of the [facility] website. [facility] encourage all of our patients to enroll in Patient Portal as it presents a valuable opportunity for patients and their families to actively participate in their care and stay healthy Welcome to [facility]. ?We look forward to working with you. Health screenings for women You should visit your health care provider from time to time, even if you are healthy. The purpose of these visits is to: Screen for medical issues Assess your risk for future medical problems Encourage a healthy lifestyle Update vaccinations and other preventive care services Help you get to know your provider in case of an illness Information Even if you feel fine, you should still see your provider for regular checkups. These visits can help you avoid problems in the future. For example, the only way to find out if you have high blood pressure is to have it checked regularly. High blood sugar and high cholesterol levels also may not have any symptoms in the early stages. A simple blood test can check for these conditions. There are specific times when you should see your provider or receive specific health screenings. The [place] Preventive Services Task Force publishes a list of recommended screenings. Below are screening guidelines for women ages 18 to 39. BLOOD PRESSURE SCREENING Your blood pressure should be checked at least once every 3 to 5 years if: Your blood pressure is in the normal range (top number less than 120 mm Hg and bottom number less than 80 mm Hg) You don't have risk factors for high blood pressure Ask your provider if you need your blood pressure checked more often if: The top number is 120 to 129 mm Hg or the bottom number is 70 to 79 mm Hg You have diabetes, heart disease, kidney problems, are overweight, or have certain other health conditions You have a first-degree relative with high blood pressure You are Black You had high blood pressure during a If the top number is 130 mm Hg or greater or the bottom number is 80 mm Hg or greater, this is considered stage 1 hypertension. Schedule an appointment with your provider to learn how you can reduce your blood pressure. Watch for blood pressure screenings in your area. Ask your provider if you can stop in to have your blood pressure checked. BREAST CANCER SCREENING Experts do not agree about the benefits of breast self-exams in finding breast cancer or saving lives. Talk to your provider about what is best for you. A screening mammogram is not recommended for most women under age 40. Your provider may discuss and recommend mammograms, MRI scans, or ultrasounds if you have an increased risk for breast cancer, such as: A mother or sister who had breast cancer at a young age (most often starting screening earlier than the age the close relative was diagnosed) You carry a high-risk genetic marker CERVICAL CANCER SCREENING Cervical cancer screening should start at age 21 years unless your provider advises otherwise. After the first test: Women ages 21 through 29 should have a Pap test every 3 years. Exoprts do not agree on whether HPV testing is recommended for this age group. Women ages 30 through 65 should be screened with either a Pap test every 3 years or the HPV test every 5 years or both tests every 5 years (called cotesting ). Women who have been treated for precancer (cervical dysplasia) should continue to have Pap tests for 20 years after treatment or until age 65, whichever is longer. If you have had your uterus and cervix removed (total hysterectomy), and you have not been diagnosed with cervical cancer or precancer (high grade cervical neoplasia), you do not need cervical cancer screening. CHOLESTEROL SCREENING Cholesterol screening should begin at: Age 45 for women with no known risk factors for coronary heart disease Age 20 for women with known risk factors for coronary heart disease Repeat cholesterol screening should take place: Every 5 years for women with normal cholesterol levels More often if changes occur in lifestyle (including weight gain and diet) More often if you have diabetes, heart disease, kidney problems, or certain other conditions DIABETES SCREENING You should be screened for diabetes starting at age 35 and then repeated every 3 years if you have no risk factors for diabetes. Screening may need to start earlier and be repeated more often if you have other risk factors for diabetes, such as: You have a first degree relative with diabetes. You are overweight or have obesity. You have high blood pressure, prediabetes, or a history of heart disease. Screening for diabetes should be done if you are planning to become and you are overweight and have other risk factors such as high blood pressure. DENTAL EXAM Go to the dentist once or twice every year for an exam and cleaning. Your dentist will evaluate if you need more frequent visits. EYE EXAM Have an eye exam every 5 to 10 years before age 40. If you have vision problems, have an eye exam every 2 years or more often if recommended by your provider. You should have an eye exam that includes an examination of your retina (back of your eye) at least every year if you have diabetes. IMMUNIZATIONS Commonly needed vaccines include: Flu shot: get one every year. COVID-19 vaccine: ask your provider what is best for you. Tetanus-diphtheria and acellular pertussis (Tdap) vaccine: have one at or after age 19 as one of your tetanus-diphtheria vaccines if you did not receive it as an adolescent. Tetanus-diphtheria: have a booster (or Tdap) every 10 years. Varicella vaccine: receive 2 doses if you never had chickenpox or the varicella vaccine. Hepatitis B vaccine: receive 2, 3, or 4 doses, depending on your exact circumstances. Measles, mumps, and rubella (MMR) vaccine: receive 1 to 2 doses if you are not already immune to MMR. Your provider can tell you if you are immune. Ask your provider about the human papillomavirus (HPV) vaccine if: You have not received the HPV vaccine in the past You have not completed the full vaccine series (you should catch up on this shot) Ask your provider if you should receive other immunizations if you have certain health problems that increase your risk for some diseases such as pneumonia. INFECTIOUS DISEASE SCREENING Women who are sexually active should be screened for chlamydia and gonorrhea up until age 25. Women 25 years and older should be screened for chlamydia and gonorrhea if at high risk. Screening for hepatitis C: All adults ages 18 to 79 should get a one-time test for hepatitis C. people should be screened at every . Screening for human immunodeficiency virus (HIV): All people ages 15 to 65 should get a one-time test for HIV. Depending on your lifestyle and medical history, you may also need to be screened for infections such as syphilis and HIV, as well as other infections. PHYSICAL EXAM All adults should visit their provider from time to time, even if they are healthy. The purpose of these visits is to: Screen for disease Assess your risk of future medical problems Encourage a healthy lifestyle Update your vaccinations and other preventive care services Maintain a relationship with a provider in case of an illness Your height, weight, and BMI should be checked at every exam. During your exam, your provider may ask you about: Depression and anxiety Diet and exercise Alcohol and tobacco use Safety issues, such as using seat belts, smoke detectors, and intimate partner violence Your medicines and risk for interactions SKIN SELF-EXAM Your provider may check your skin for signs of skin cancer, especially if you're at high risk, such as if you: Have had skin cancer before Have close relatives with skin cancer Have a weakened immune system OTHER SCREENING Talk with your provider about colon cancer screening if you have a strong family history of colon cancer or polyps, or if you have had inflammatory bowel disease or polyps yourself. Routine bone density screening of women under 40 is not recommended.
[2025-04-30 11:18] VITALS: BP 98/67; PULSE 62; RESP 12; TEMP 36.2; O2SAT 100; BMI 25.4
--- OUTSIDE RECORDS SUMMARY | 2025-04-30 12:14 | XMS_ITS | Patient Health Record ---
Author Organization [facility] Address [address] [place] [address] Care Team Providers Care Tools Programmer Name Role Phone HIMANSHU BERGERON Unavailable [phone] Allergies No Known Allergies Results Component Value Reference Range Notes PDF Report Reviewed date:04/03/2025 12:15:22 PM Interpretation: Performing Lab:[facility], [address], [address], [place], Phone - [phone], Director - [facility] Notes/Report: Chlamydia/GC Amplification Reviewed date:04/03/2025 01:02:47 PM Interpretation: Performing Lab:[facility], [address], [address], [place], Phone - [phone], Director - [facility] Notes/Report: Chlamydia trachomatis, ZAYRA Negative Negative Neisseria gonorrhoeae, ZAYRA Negative Negative Reason For Referral No Information Social History Tobacco Use: Social History Observation Description Date Details (start date - stop date) Never Smoker NA - NA AUDIT-C (Standard) Question Answer Notes Did you have a drink containing alcohol in the p ast year? No Points 0 Interpretation Negative Tobacco Control (Standard) Question Answer Notes Tobacco use: Nonsmoker Vital Signs Temperature 98.0 degrees Fahrenheit 03/28/2025 Blood pressure diastolic 74 mm Hg 03/28/2025 Height 59.25 in 03/28/2025 Blood pressure systolic 122 mm Hg 03/28/2025 Weight 130 lbs 03/28/2025 BMI 26.03 kg/m2 03/28/2025 Encounters Encounter Location Date Provider Diagnosis [facility] [address] [facility] [address] [place] [address] 03/28/2025 HIMANSHU BERGERON Encounter for gynecological examination (general) (routine) without abnormal findings Z01.419 ; Encounter for screening for infections with a predominantly sexual mode of transmission Z11.3 and High risk heterosexual behavior Z72.51 Total [facility] [address] [place] [address] 06/18/2024 HIMANSHU BERGERON Assessments Encounter Date Diagnosis (ICD Code) Assessment Notes Treatment Notes Treatment Clinical Notes Section Notes 03/28/2025 Encounter for screening for infections with a predominantly sexual mode of transmission (ICD-10 - Z11.3) 03/28/2025 Encounter for gynecological examination (general) (routine) without abnormal findings (ICD-10 - Z01.419) Discussed cervical cancer screening with cytology every 3 years as per ASCCP guidelines. Advised continued annual pelvic exams. Patient encouraged to increase her level of exercise. SBE technique encouraged/tau ght. Safe sexual practices and STI prevention discussed. 03/28/2025 High risk heterosexual behavior (ICD-10 - Z72.51) Plan Of Treatment Pending Test Test Name Order Date [id number] 03/26/2024 HBsAg Screen-[id number] 03/26/2024 HIV Ab/p24 Ag with Reflex-[id number] 024 Chlamydia/GC Amplification-[id number] 2023 Chlamydia/GC Amplification-[id number] 2024 HCV Antibody-[id number] 03/26/2024 Next Appt Details Provider Name:HIMANSHU ISAAC Salvador, 03/30/2026 02:30:00 PM, [address], [address], [place], [address], Insurance Providers Payer Name Payer Address Payer Phone Subscriber Number Group Number Insured Name Patient Relationship to Insured Coverage Start Date Coverage End Date [employer] S OF [place] [address] [address] [place] [address] [id number] CHAPIN HITCHCOCK Self - patient is the insured
== END 2025-04-30 11:46 | disposition home or self-care (01) ==
LOC: HO.HMCFM 11:11
PROVIDERS: PCP Nurse Practitioner Family; Visit Provider Nurse Practitioner Family
DX: Z00.00 Encounter for general adult medical examination without abnormal findings (principal); C64.1 Malignant neoplasm of right kidney, except renal pelvis; Z76.89 Persons encountering health services in other specified circumstances; Z87.448 Personal history of other diseases of urinary system

== ENCOUNTER → 2025-04-30 11:11 | Outpatient (BNVA) | payer OTHER, SELFPAY | PROVIDERS: PCP Nurse Practitioner Family; Visit Provider Nurse Practitioner Family | DX: Z00.00 Encounter for general adult medical examination without abnormal findings (principal); C64.1 Malignant neoplasm of right kidney, except renal pelvis; Z76.89 Persons encountering health services in other specified circumstances; Z87.448 Personal history of other diseases of urinary system | CPT/HCPCS: 96127 ==

== ENCOUNTER 2025-04-30 11:49 | Outpatient (REF) | payer OTHER, SELFPAY ==
[2025-04-30 14:17] LABS: Hematocrit 41.6 % (37.0-47.0); Hemoglobin 13.6 g/dl (12.0-16.0); Mean Corpuscular HGB Conc 32.7 g/dl (31.0-35.0); Mean Corpuscular Hemoglobin 28.8 pg (27.0-33.0); Mean Corpuscular Volume 88.1 fL (80.0-98.0); NRBC Abs Auto 0.000 X10*3/uL (0.0-0.012); NRBC Pct Auto 0.0 /100WBC (0.0-0.2); Platelet Count 311 X10*3/uL (160-400); Red Blood Count 4.72 X10*6/uL (4.20-5.50); White Blood Count 8.2 X10*3/uL (4.8-10.8)
[2025-04-30 14:19] LABS: Appearance Urine Clear; Glucose Urine UA Negative (Negative); PH 6.5 (5.0-9.0); Specific Gravity - Urine 1.020 (1.005-1.025)
[2025-04-30 14:27] LABS: Hemoglobin A1C 104.6062 umol/L; Total Hemoglobin (HGBA1C) 3553.2334 umol/L
[2025-04-30 14:40] LABS: Alanine Aminotransferase 12 U/L (0-31); Albumin Level 4.5 g/dL (3.5-5.0); Alkaline Phosphatase 90 U/L (39-117); Anion Gap 9 (12-20); Aspartate Amino Transferase 23 U/L (5-31); Blood Urea Nitrogen 7 mg/dL (9-16); Calcium 9.4 mg/dL (8.4-10.2); Carbon Dioxide 25 mmol/L (22-29); Chloride 109 mmol/L (96-108); Cholesterol 126 mg/dL (<200); Estimated Glomerular Filt Rate > 60; HDL Cholesterol 40 mg/dL (>40); Iron 71 mcg/dL (30-160); Percent Iron Saturation 24 % (15-50); Potassium 3.8 mmol/L (3.3-5.1); Sodium 139 mmol/L (135-145); Total Iron Binding Capacity 298 mcg/dL (228-428); Total Protein 7.6 g/dL (6.5-8.0); Triglycerides 119 mg/dL (<150); Unsaturated Iron Binding 227 ug/dL
[2025-04-30 15:06] LABS: Folate 11.1 ng/mL (> or = 4.0); Vitamin B12 765 pg/mL (200-900)
== END 2025-04-30 11:50 | disposition home or self-care (01) ==
LOC: HO.WFDLDS 11:49
PROVIDERS: Visit Provider Nurse Practitioner Family
DX: Z00.00 Encounter for general adult medical examination without abnormal findings (principal); C64.9 Malignant neoplasm of unspecified kidney, except renal pelvis; Z87.448 Personal history of other diseases of urinary system; R30.0 Dysuria
CPT/HCPCS: 36415; 80053; 80061; 81003; 82306; 82570; 82607; 82746; 83036; 83540; 84443; 85027

== ENCOUNTER 2025-06-03 12:06 | Outpatient (REF) | payer OTHER, SELFPAY ==
--- OUTSIDE RECORDS SUMMARY | 2025-06-03 13:02 | XMS_ITS | Patient Health Record ---
Author Organization [employer] [facility] Address [address] [place] [address] Care Team Providers Care Customer Field Representative Name Role Phone HIMANSHU BERGERON Unavailable [phone] Allergies No Known Allergies Results Component Value Reference Range Notes PDF Report Reviewed date:04/03/2025 12:15:22 PM Interpretation: Performing Lab:[facility], [address], [address], [place], Phone - [phone], Director - [facility] Notes/Report: Chlamydia/GC Amplification Reviewed date:04/03/2025 01:02:47 PM Interpretation: Performing Lab:[facility], [address], [address], [place], Phone - [phone], [facility] Notes/Report: Chlamydia trachomatis, ZAYRA Negative Negative Neisseria gonorrhoeae, ZAYRA Negative Negative Reason For Referral No Information Medications Medication SIG (Take, Route, Frequency, Duration) Notes Start Date End Date Status Active Social History Tobacco Use: Social History Observation Description Date Details (start date - stop date) Never Smoker NA - NA AUDIT-C (Standard) Question Answer Notes Did you have a drink containing alcohol in the p ast year? No Points 0 Interpretation Negative Tobacco Control (Standard) Question Answer Notes Tobacco use: Nonsmoker Problems Problem Type SNOMED Code ICD Code Onset Dates Problem Status W/U Status Risk Notes Problem Female infertility, unspecified (N97.9) Active confirmed Vital Signs Temperature 98.0 degrees Fahrenheit 05/22/2025 Blood pressure diastolic 64 mm Hg 05/22/2025 Height 59.25 in 05/22/2025 Blood pressure systolic 98 mm Hg 05/22/2025 Weight 132 lbs 05/22/2025 BMI 26.43 kg/m2 05/22/2025 Encounters Encounter Location Date Provider Diagnosis [facility] [address] [place] [address] 03/28/2025 HIMANSHU BERGERON Encounter for gynecological examination (general) (routine) without abnormal findings Z01.419 ; Encounter for screening for infections with a predominantly sexual mode of transmission Z11.3 and High risk heterosexual behavior Z72.51 Total [facility] [address] [facility] [address] [place] [address] 05/22/2025 HIMANSHU BERGERON Female infertility, unspecified N97.[address] [address] 06/18/2024 HIMANSHU BERGERON Assessments Encounter Date Diagnosis [...] increase her level of exercise. SBE technique encouraged/taumary t. Safe sexual practices and STI prevention discussed. 05/22/2025 Female infertility, unspecified (ICD-10 - N97.9) Patient encouraged to schedule a consult with [facility] in [place] for continuation of evaluation - needs semen analysis and hysterosalpingog bessie. 03/28/2025 High risk heterosexual behavior (ICD-10 - Z72.51) 05/22/2025 Other 32 minutes were spent on the day of the visit reviewing and prepping the chart, obtaining the HPI, examining the patient, counseling the patient on the diagnosis, ordering/refilli ng medications, ordering tests and procedures and documenting this encounter. Plan Of Treatment Pending Test Test Name Order Date Prolactin-[id number] 05/22/2025 [id number] 03/26/2024 HBsAg Screen-[id number] 03/26/2024 HIV Ab/p24 Ag with Reflex-[id number] 024 Chlamydia/GC Amplification-[id number] 2023 Chlamydia/GC Amplification-[id number] 2024 Anti-Mullerian Hormone (AMH)-[id number] 05/09 HCV Antibody-[id number] 03/26/2024 FSH+LH+E2 05/22/2025 Next Appt Details Provider Name:HIMANSHU Otf Franco, 03/30/2026 02:30:00 PM, [address], [address], [place], [address], Insurance Providers Payer Name Payer Address Payer Phone Subscriber Number Group Number Insured Name Patient Relationship to Insured Coverage Start Date Coverage End Date [employer] S OF [employer] [address] [address] [place] [address] [id number] CHAPIN HITCHCOCK Self - patient is the insured
[2025-06-04 07:18] LABS: Follicle Stimulating Hormone 7.7 mIU/mL
[2025-06-06 11:59] LABS: Anti-Mullerian Hormone-Female 4.55 ng/mL (1.02-14.63)
[2025-06-20 21:33] LABS: Estradiol Ultra Sensitive 34 pg/mL
== END 2025-06-03 12:07 | disposition home or self-care (01) ==
LOC: HO.LAB 12:06
PROVIDERS: PCP Nurse Practitioner Family; Visit Provider Obstetrics & Gynecology
DX: N97.9 Female infertility, unspecified (principal)
CPT/HCPCS: 36415; 82166; 82670; 83001; 83002; 84146

== ENCOUNTER 2025-06-04 13:34 | Outpatient (REF) | payer OTHER, SELFPAY ==
--- NOTE | ~2025-06-04 | US_ITS ---
CLINICAL HISTORY: Z87.448 - Personal history of other diseases of urinary system --- Additional Notes or Special Instructions: CT SCAN 2023 NOTED NEPHROMAS US Renal Comparison: None provided Findings: Right kidney normal size and echotexture, 9.9 cm length. Left kidney normal size and echotexture, 10.4 cm length. No hydronephrosis. Appropriate blood flow to both kidneys. IMPRESSION: Negative renal ultrasound. This document has been electronically signed by: Jeff Robles MD on 06/05/2025 09:00:04
--- OUTSIDE RECORDS SUMMARY | 2025-06-04 14:22 | XMS_ITS | Patient Health Record ---
Author Organization [email or web address] [facility] Address [address] [place] [address] Care Team Providers Care Licensed Real Estate Broker Name Role Phone HIMANSHU BERGERON Unavailable [phone] Allergies No Known Allergies Results Component Value Reference Range Notes Chlamydia/GC Amplification Reviewed date:04/03/2025 01:02:47 PM Interpretation: Performing Lab:[facility], [address], [address], [place], Phone - [phone], [facility] Notes/Report: Chlamydia trachomatis, ZAYRA Negative Negative Neisseria gonorrhoeae, ZAYRA Negative Negative PDF Report Reviewed date:04/03/2025 12:15:22 PM Interpretation: Performing Lab:[facility], [address], [address], [place], Phone - [phone], Director - [facility] Notes/Report: Reason For Referral No Information Medications Medication [...] Encounters Encounter Location Date Provider Diagnosis Total [facility] [address] [address] [place] [address] 03/28/2025 HIMANSHU BERGERON Encounter for gynecological examination (general) (routine) without abnormal findings Z01.419 ; Encounter for screening for infections with a predominantly sexual mode of transmission Z11.3 and High risk heterosexual behavior Z72.51 Total [facility] [address] [facility] [address] [place] [address] 05/22/2025 HIMANSHU BERGERON Female infertility, unspecified N97.[address] [address] 06/18/2024 HIMANSHU BERGERON Assessments Encounter Date Diagnosis [...] Patient encouraged to schedule a consult with [facility] in [place] for continuation of evaluation - needs semen [...] Treatment Pending Test Test Name Order Date [id number] 05/22/2025 [id number] 03/26/2024 HBsAg Screen-[id number] 03/26/2024 HIV Ab/p24 Ag with Reflex-[id number] 024 Chlamydia/GC Amplification-[id number] 2023 Chlamydia/GC Amplification-[id number] 2024 Anti-Mullerian Hormone (AMH)-[id number] 05/09 HCV Antibody-[id number] 03/26/2024 FSH+LH+E2 05/22/2025 Next Appt Details Provider Name:HIMANSHU Otf Franco, 03/30/2026 02:30:00 PM, [address] [facility], [address], [place], [address], Insurance Providers Payer Name Payer Address Payer Phone Subscriber Number Group Number Insured Name Patient Relationship to Insured Coverage Start Date Coverage End Date [employer] S[employer] BAB[employer]TER S OF [employer] [address] [address] [place] [address] [id number] CHAPIN HITCHCOCK Self - patient is the insured
== END 2025-06-04 13:35 | disposition home or self-care (01) ==
LOC: HO.HMGCX 13:34
PROVIDERS: PCP Nurse Practitioner Family; Visit Provider Nurse Practitioner Family
DX: Z87.448 Personal history of other diseases of urinary system (principal); C64.9 Malignant neoplasm of unspecified kidney, except renal pelvis
CPT/HCPCS: 76775

== ENCOUNTER → 2025-06-04 13:44 | Outpatient (BNV) | payer OTHER, SELFPAY | PROVIDERS: PCP Nurse Practitioner Family; Visit Provider Radiology Diagnostic Radiology | DX: Z87.448 Personal history of other diseases of urinary system (principal); C64.9 Malignant neoplasm of unspecified kidney, except renal pelvis | CPT/HCPCS: 76775 ==